=== PATIENT | male | born 1975 | race Two or more races ===

== ENCOUNTER 2024-03-08 12:15 | Emergency (ER) | payer MEDICAID ==
[~2024-03-08] VITALS: Ht 185.4 cm; Wt 115.9 kg
[~2024-03-08 12:15] MED LIST: CEFP200T12 PO; METF-1185 PO; PREG75 PO; [UNRECOGNIZED DRUG - OTHER] IM; [UNRECOGNIZED DRUG - OTHER] PO
[2024-03-08 12:24] VITALS: TEMP 98.2
[2024-03-08] MEDS ORDERED: BACTDSB PO (12:26)
[2024-03-08] MEDS ORDERED: SITA25 PO (12:26)
[2024-03-08] MEDS ORDERED: DOCU100C33 PO (12:26)
[2024-03-08 12:46] LABS: GLUCOMETER DEV NAME(LOC) ER.7; GLUCOSE,POINT OF CARE 299 MG/DL (70-110)
[2024-03-08 15:46] VITALS: BP 137/88; PULSE 83; RESP 16; O2SAT 99
[2024-03-08 15:59] LABS: APPEARANCE,URINE CLEAR (CLEAR); BILIRUBIN,URINE NEGATIVE (NEGATIVE); COLOR,URINE LIGHT YELLOW (YELLOW); GLUCOSE, URINE (UA) >=1000 mg/dL (NEGATIVE); KETONES,URINE NEGATIVE (NEGATIVE); LEUKOCYTE ESTERASE ,URINE TRACE (NEGATIVE); NITRATE,URINE POSITIVE (NEGATIVE); OCCULT BLOOD,URINE NEGATIVE (NEGATIVE); PH,URINE 5.5 (5.0-8.0); PROTEIN,URINE NEGATIVE (NEGATIVE); SPECIFIC GRAVITIY, URINE 1.016 (1.003-1.030); UROBILINOGEN,URINE <=1.0 mg/dL (<=1.0)
[2024-03-08 16:18] LABS: BACTERIA,URINE Many /HPF (None Seen); RBC,URINE 0-2 /HPF (0-2)
[2024-03-08] MEDS ORDERED: IBUP-1554 PO (16:56)
[2024-03-08] MEDS ORDERED: ACET-2080 PO (16:56)
[2024-03-08] MEDS ORDERED: CEPH-558 PO (16:56)
== END 2024-03-08 17:18 | disposition home or self-care (01) ==
LOC: EMS 12:15
DX: N45.1 Epididymitis (principal); N43.3 Hydrocele, unspecified; E11.65 Type 2 diabetes mellitus with hyperglycemia; I10 Essential (primary) hypertension; F17.210 Nicotine dependence, cigarettes, uncomplicated; Z88.0 Allergy status to penicillin
CPT/HCPCS: 76870; 81001; 82962; 87077; 87086; 87186; 99284